=== PATIENT | female | born 1955 | race Caucasian/White ===

== ENCOUNTER → 2019-09-12 | Outpatient (CLI) | payer OTHER ==
--- NOTE | 2019-09-12 14:14 | KCIC ---
Bilateral digital screening mammograms with 3-D tomosynthesis: Reason for examination: Routine screening. Comparison is made to previous studies dated back to 08/03/2013. Bilateral mammograms in CC and oblique projections were obtained with 2-D imaging and 3-D tomosynthesis imaging on a Siemens Inspiration unit and reviewed on the workstation. Interpretation was made with the benefit of CAD. The skin and nipples show no abnormalities. No abnormal axillary lymph nodes are seen. The breast parenchyma is heterogeneously dense. (Breast density: Category C.) There appears to be some new nodularity in the retroareolar position of the left breast on oblique view only. This may represent superimposed tissue but a nodule cannot be excluded and further evaluation with coned compression views in CC and lateral projections and left breast ultrasound is recommended. There are no other dominant masses, suspicious calcifications or architectural distortion. Benign calcifications are present. Impression: New nodularity in the retroareolar position of the left breast on oblique view only. Recommend further evaluation with additional coned compression views and ultrasound. Your patient's mammogram demonstrates that she has dense breast tissue (breast density category C or D), which could hide abnormalities, and if she has other risk factors for breast cancer that have been identified, she might benefit from supplemental screening tests that may be suggested by you as her ordering physician. Dense breast tissue, in and of itself, is a relatively common condition. Therefore, this information is not provided to cause undue concern, but rather to raise your awareness and to promote discussion with your patient regarding the presence of other risk factors, in addition to dense breast tissue. Your patient's mammography results will be sent to her. BI-RAD Category 0: Incomplete. Needs additional imaging evaluation. "Our facility is accredited by the [employer] Mammography [employer]." This patient's information has been entered into a reminder system for the patient to be notified with the results of her examination and a target date for the next mammogram. Electronically signed by: Destiny Arnold MD (09/12/2019 2:11 PM) [id number]
== END | disposition home or self-care (01) ==
LOC: KCIC MAMMO 10:58
DX: Z12.31 Encounter for screening mammogram for malignant neoplasm of breast (principal); N64.89 Other specified disorders of breast
CPT/HCPCS: 77063; 77067

== ENCOUNTER → 2019-09-27 | Outpatient (CLI) | payer OTHER ==
--- NOTE | 2019-09-27 17:17 | KCIC ---
Left breast diagnostic digital mammogram: Reason for examination: Possible nodule on screening mammogram. Comparison is made to mammographic exam dated 09/12/2019. Coned compression views were obtained in CC and lateral projections. With these additional views, the area of nodularity is less pronounced and probably represents some ductal ectasia or superimposed tissues. A few benign calcifications are seen. No grossly suspicious abnormalities are seen. IMPRESSION: No suspicious abnormality seen with the additional views. Ultrasound to follow. BI-RADS Category 0: Incomplete. Needs additional imaging evaluation. Left breast ultrasound: Ultrasound examination of the left breast and axilla was performed. There is some ductal ectasia especially in the retroareolar 9:00 position. No suspicious nodules are seen. No abnormal appearing lymph nodes are seen in the axilla. 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 Recommend 6 month follow-up with mammograms and ultrasound of the left breast. BI-RADS Category 3: Probably Benign. "Our facility is accredited by the [employer] Mammography [employer]." This patient's information has been entered into a reminder system for the patient to be notified with the results of her examination and a target date for the next mammogram. Electronically signed by: Destiny Arnold MD (09/27/2019 5:14 PM) [id number]
== END | disposition home or self-care (01) ==
LOC: KCIC MAMMO 12:52
DX: N60.42 Mammary duct ectasia of left breast (principal)
CPT/HCPCS: 76641; 77065

== ENCOUNTER → 2020-05-22 | Outpatient (CLI) | payer MEDICARE ==
--- NOTE | 2020-05-22 13:59 | KCIC ---
Left breast diagnostic digital mammograms with 3-D tomosynthesis: Reason for examination: Follow-up subareolar density.. Comparison is made to previous study dated 09/12/2019. Left breast mammograms in CC and oblique projections were obtained with 2-D imaging and 3-D tomosynthesis imaging on a Siemens Inspiration unit and reviewed on the workstation. Interpretation was made with the benefit of CAD. The skin and nipple show no abnormalities. No abnormal axillary lymph nodes are seen. The breast parenchyma is heterogeneously dense. (Breast density: Category C.) There appears to be decreased nodularity in the subareolar position. There are no new dominant masses, suspicious calcifications or architectural distortion. Benign calcifications are present. Impression: Decreased nodularity in the subareolar position. Ultrasound to follow. Your patient's mammogram demonstrates that she has dense breast tissue (breast density category C or D), which could hide abnormalities, and if she has other risk factors for breast cancer that have been identified, she might benefit from supplemental screening tests that may be suggested by you as her ordering physician. Dense breast tissue, in and of itself, is a relatively common condition. Therefore, this information is not provided to cause undue concern, but rather to raise your awareness and to promote discussion with your patient regarding the presence of other risk factors, in addition to dense breast tissue. Your patient's mammography results will be sent to her. BI-RAD Category 0: Incomplete. Needs additional imaging evaluation. Left breast ultrasound: Comparison is made to previous study dated 09/27/2019. Left breast ultrasound in the area of mammographic concern and axillary region of the left breast was performed. There is some ductal ectasia without a focal cystic or solid nodules seen. No abnormal appearing lymph nodes are seen in the axilla. IMPRESSION: Ductal ectasia in the subareolar position but no other focal abnormality seen. Recommend routine mammographic follow-up. BI-RADS Category 2: Benign. "Our facility is accredited by the [employer] Mammography [employer]." This patient's information has been entered into a reminder system for the patient to be notified with the results of her examination and a target date for the next mammogram. Electronically signed by: Destiny Arnold MD (05/22/2020 1:56 PM) [id number]
== END | disposition home or self-care (01) ==
LOC: KCIC MAMMO 09:44
DX: R92.1 Mammographic calcification found on diagnostic imaging of breast (principal)
CPT/HCPCS: 76641; 77065; G0279; 77061

== ENCOUNTER → 2020-09-13 | Outpatient (CLI) | payer MEDICARE, OTHER ==
--- NOTE | 2020-09-13 13:08 | KCIC ---
Bilateral digital screening mammograms with 3-D tomosynthesis: Reason for examination: Routine screening. Comparison is made to previous studies dated back to 08/03/2013. Bilateral mammograms in CC and oblique projections were obtained with 2-D imaging and 3-D tomosynthesis imaging on a Siemens Inspiration unit and reviewed on the workstation. Interpretation was made with the benefit of CAD. The skin and nipples show no abnormalities. No abnormal axillary lymph nodes are seen. The breast parenchyma is heterogeneously dense. (Breast density: Category C.) There continue to be small nodular parenchymal densities anteriorly in the left breast seen best on oblique view which are unchanged. There are no new dominant masses, suspicious calcifications or architectural distortion. Benign calcifications are present. Impression: No evidence of malignancy. Recommend routine screening. Your patient's mammogram demonstrates that she has dense breast tissue (breast density category C or D), which could hide abnormalities, and if she has other risk factors for breast cancer that have been identified, she might benefit from supplemental screening tests that may be suggested by you as her ordering physician. Dense breast tissue, in and of itself, is a relatively common condition. Therefore, this information is not provided to cause undue concern, but rather to raise your awareness and to promote discussion with your patient regarding the presence of other risk factors, in addition to dense breast tissue. Your patient's mammography results will be sent to her. BI-RAD Category 2: Benign. "Our facility is accredited by the [employer] Mammography [employer]." This patient's information has been entered into a reminder system for the patient to be notified with the results of her examination and a target date for the next mammogram. Electronically signed by: Destiny Arnold MD (09/13/2020 1:05 PM) [email or web address]
== END ==
LOC: KCIC MAMMO 09:45
PROVIDERS: ATTEND Family Medicine
DX: Z12.31 Encounter for screening mammogram for malignant neoplasm of breast (principal); N64.89 Other specified disorders of breast
CPT/HCPCS: 77063; 77067

== ENCOUNTER → 2021-09-24 | Outpatient (CLI) | payer MEDICARE ==
--- NOTE | 2021-09-24 11:43 | KCIC ---
Bilateral digital screening mammograms with 3-D tomosynthesis: Reason for examination: Routine screening. Comparison is made to previous studies dated back to 07/21/2018. Bilateral mammograms in CC and oblique projections were obtained with 2-D imaging and 3-D tomosynthes is imaging on a Siemens Inspiration unit and reviewed on the workstation. Interpretation was made wit h the benefit of CAD. The skin and nipples show no abnormalities. No abnormal axillary lymph nodes are seen. The breast par enchyma is heterogeneously dense. (Breast density: Category C.) There are no dominant masses, suspici ous calcifications or architectural distortion. Benign calcifications are present. Impression: No evidence of malignancy. Recommend routine screening. Your patient's mammogram demonstrates that she has dense breast tissue (breast density category C or D), which could hide abnormalities, and if she has other risk factors for breast cancer that have bee n identified, she might benefit from supplemental screening tests that may be suggested by you as her ordering physician. Dense breast tissue, in and of itself, is a relatively common condition. Therefo re, this information is not provided to cause undue concern, but rather to raise your awareness and t o promote discussion with your patient regarding the presence of other risk factors, in addition to d ense breast tissue. Your patient's mammography results will be sent to her. BI-RAD Category 2: Benign. "Our facility is accredited by the [employer] Mammography [employer]." This patient's information has been entered into a reminder system for the patient to be notified wit h the results of her examination and a target date for the next mammogram. Electronically signed by: Destiny Arnold MD (09/24/2021 11:40 AM) [email or web address]
== END ==
LOC: KCIC MAMMO 09:19
PROVIDERS: ATTEND Family Medicine
DX: Z12.31 Encounter for screening mammogram for malignant neoplasm of breast (principal)
CPT/HCPCS: 77063; 77067